=== PATIENT | male | born 1955 | race African-American/Black ===

== ENCOUNTER 2022-09-07 21:34 | Inpatient (IN) | payer OTHER ==
[~2022-09-07] VITALS: Ht 182.9 cm; Wt 106.2 kg
[2022-09-07 21:40] VITALS: BP 74/49
[2022-09-07] MEDS ORDERED: AMIODARONE 450mg/250ml AE 250 ML IV ONE (21:53)
[2022-09-07] MEDS ORDERED: CALCIUM CHLOR(10%) 100MG/ML 10ML SYRINGE IV ONE (21:56)
[2022-09-07] MEDS ORDERED: EPINEPHrine HCL 250 ML IV SCH (22:00)
[2022-09-07] MEDS ORDERED: AMIODARONE HCL 150 MG in D5W 5% 100 ML IV ONE (22:00)
[2022-09-07 22:04] LABS: Hemoglobin 15.4 g/dL (13.5-17.5); Mean Corpuscular Hemoglobin 32.1 pg (28.0-32.0); Mean Corpuscular Hgb Conc. 30.9 g/dL (32.0-36.0); Mean Corpuscular Volume 104.2 fL (80.0-100.0); Red Cell Distribution Width 15.5 % (11.8-14.3); White Blood Cell 7.5 10^3/uL (4.4-10.8)
[2022-09-07] MEDS ORDERED: AMIODARONE 450mg/250ml AE 250 ML IV SCH (22:15)
[2022-09-07 22:16] LABS: INR 1.16 (0.9-1.15); Partial Thromboplastin Time 36.9 sec (24.6-33.4)
[2022-09-07] MEDS ORDERED: NOREPINEPHRINE 8 MG/250ML KIT 250 ML IV ONE (22:19)
[2022-09-07 22:23] LABS: Albumin 3.8 g/dL (3.4-5.0); BUN/Creatinine Ratio 8.9 (10.0-20.0); Calcium 9.5 mg/dL (8.5-10.1); Magnesium 2.5 mg/dL (1.6-2.6); Potassium 3.9 mmol/L (3.5-5.1)
[2022-09-07] MEDS: NOREPINEPHRINE 8 MG/250ML KIT 250 ML IV SCH (22:26)
[2022-09-07 22:28] LABS: Bilirubin, Total 1.3 mg/dL (0.2-1.0); Total Protein 7.8 g/dL (6.4-8.2)
[2022-09-07] MEDS ORDERED: MIDAZOLAM DRIP 50 mg/50mL 50 ML IV ONE (22:28)
[2022-09-07] MEDS: MIDAZOLAM DRIP 50 mg/50mL 50 ML IV SCH (22:30)
[2022-09-07 22:56] LABS: Lactic Acid w/Reflex 8.4 mmol/L (0.4-2.0)
[2022-09-07 23:09] LABS: Urine Bacteria NONE SEEN /hpf (None Seen); Urine Blood 1+ /uL (Negative); Urine Mucus FEW (None Seen); Urine Specific Gravity 1.024 (1.001-1.035); Urine Sperm PRESENT /hpf (None Seen); Urine WBC 3 /hpf (0 - 3)
[2022-09-07 23:20] LABS: Band Neutrophils % (manual) 3; Basophils % (manual) 0 (0.0-2.0); Blast Cells 0; Eosinophils % (manual) 0 (0-7); Lymphocytes % (manual) 56 (10.0-50.0); Metamyelocytes % 2; Monocytes % (manual) 6 (0-12); Myelocytes % 0; Promyelocytes % 0; Reactive Lymphocytes 0
[2022-09-07 23:43] LABS: Amphetamine Screen, Urine NEGATIVE (NEGATIVE); Barbiturate Scree,Urine NEGATIVE (NEGATIVE); Benzodiazephine Screen, Urine NEGATIVE (NEGATIVE); Cannabinoid Screen, Urine POSITIVE (NEGATIVE); Cocaine Screen, Urine NEGATIVE (NEGATIVE); Opiate Scree,Urine NEGATIVE (NEGATIVE); Phencyclidine Screen, Urine NEGATIVE (NEGATIVE)
[2022-09-07 23:45] VITALS: BP 115/74
[2022-09-07 23:55] VITALS: BP 99/70
[2022-09-08] VITALS (62 sets, daily range): BP systolic 78–129; BP diastolic 38–76
[2022-09-08] MEDS ORDERED: HEPARIN SODIUM (PORCINE) 5000 UNITS/ML 1ML VIAL IV ONE (02:00)
[2022-09-08 02:59] LABS: Basophils # (auto) 0 10 ^3/uL (0-0.2); Hemoglobin 15.5 g/dL (13.5-17.5); Lymphocytes # (auto) 2.1 10 ^3/uL (0.4-5.4); Monocytes # (auto) 0.6 10 ^3/uL (0-1.3); Nucleated Red Blood Cells % 0.2 %; White Blood Cell 12.7 10^3/uL (4.4-10.8)
[2022-09-08 03:01] LABS: Basophils % (auto) 0.4 % (0.0-2.0); Eosinophils # (auto) 0 10 ^3/uL (0-0.8); Eosinophils % (auto) 0.3 % (0.0-7.0); Hematocrit 49.6 % (41.0-53.0); Lymphocytes % (auto) 16.3 % (10.0-50.0); Mean Corpuscular Hgb Conc. 31.3 g/dL (32.0-36.0); Mean Corpuscular Volume 102.3 fL (80.0-100.0); Monocytes % (auto) 4.6 % (0.0-12.0); Neutrophils % (auto) 78.4 % (37.0-80.0); Red Blood Cells 4.85 10^6/uL (4.5-5.90); Red Cell Distribution Width 15.4 % (11.8-14.3)
[2022-09-08 03:15] LABS: INR 1.26 (0.9-1.15); Partial Thromboplastin Time 30.7 sec (24.6-33.4)
[2022-09-08 03:49] LABS: Salicylate < 1.7 mg/dL (2.8-20.0)
[2022-09-08 04:04] LABS: Digoxin (Lanoxin) 0.1 ng/mL (0.8-2)
[2022-09-08] MEDS: AMIODARONE 450mg/250ml AE 250 ML IV SCH ×2 (04:15→19:23)
[2022-09-08 04:18] LABS: Acetaminophen < 2.0 ug/mL (10-30)
[2022-09-08] MEDS: HEPARIN DRIP/D5W 100UNITS/ML 250 ML IV SCH (04:46)
[2022-09-08 06:51] LABS: INR 1.34 (0.9-1.15)
[2022-09-08 07:00] LABS: Partial Thromboplastin Time 117.2 sec (24.6-33.4)
[2022-09-08] MEDS ORDERED: MORPHINE SULFATE INJ 2 MG/ml SYRG IV PRN (07:15)
[2022-09-08] MEDS ORDERED: ONDANSETRON HCL 4 MG/2 ML VIAL IV PRN (07:15)
[2022-09-08] MEDS ORDERED: NITROGLYCERIN 0.4 MG SL TAB SL PRN (07:15)
[2022-09-08] MEDS ORDERED: ACETAMINOPHEN 325 MG TAB PO PRN (07:15)
[2022-09-08] MEDS ORDERED: EPINEPHrine HCL 1 MG/10 ML SYRG ONE (08:10)
[2022-09-08] MEDS ORDERED: SODIUM BICARBONATE 8.4% INJ 50ML SYRINGE ONE (08:11)
[2022-09-08] MEDS ORDERED: fentaNYL Drip 2500mCg/250mlNS 250 ML IV ONE (08:25)
[2022-09-08] MEDS ORDERED: PHENYLEPHRINE IV 250 ML IV SCH (08:30)
[2022-09-08] MEDS: NOREPINEPHRINE 8 MG/250ML KIT 250 ML IV SCH ×2 (08:37→13:13)
[2022-09-08] MEDS: fentaNYL Drip 2500mCg/250mlNS 250 ML IV SCH (08:40)
[2022-09-08] MEDS ORDERED: VANCOMYCIN PER PHARMACY 0 MG IV SCH (08:45)
[2022-09-08] MEDS: MIDAZOLAM DRIP 50 mg/50mL 50 ML IV SCH ×5 (08:46→23:55)
[2022-09-08] MEDS ORDERED: ACETAMINOPHEN 650 MG RECT SUPP PR ONE (09:00)
[2022-09-08] MEDS ORDERED: VANCOMYCIN 1GM/250ML 250 ML IV ONE (09:00)
[2022-09-08] MEDS: VASOPRESSIN 20 UNITS in SODIUM CHL 0.9% 99 ML IV SCH ×2 (09:36→17:48)
[2022-09-08] MEDS ORDERED: BUMETANIDE 2.5mg/10ml (0.25 mg/ml) INJ IV ONE (10:00)
[2022-09-08] MEDS: SODIUM CHLORIDE 0.9% 1,000 ML IV SCH (10:17)
[2022-09-08] MEDS ORDERED: PHENYLEPHRINE IV 250 ML IV ONE (10:40)
[2022-09-08] MEDS: PHENYLEPHRINE IV 250 ML IV SCH ×2 (10:53→12:57)
[2022-09-08] MEDS ORDERED: PROPOFOL 100 ML IV SCH (11:45)
[2022-09-08] MEDS: HYDROCORTISONE SOD SUCC 100 MG/2ML INJ VIAL IV SCH ×2 (12:00→18:00)
[2022-09-08] MEDS: PROPOFOL 100 ML IV SCH ×2 (12:36→23:04)
[2022-09-08] MEDS: levoFLOXacin 500MG 100 ML IV SCH (12:37)
[2022-09-08] MEDS: DOPamine 1600MCG/ML D5W 250 ML IV SCH ×2 (12:37→21:31)
[2022-09-08] MEDS ORDERED: POTASSIUM CHL 20MEQ/100ML 100 ML IV ONE (13:00)
[2022-09-08] MEDS: PHENYLEPHRINE INJ 80 MG in SODIUM CHL 0.9% 242 ML IV SCH ×2 (15:20→22:56)
[2022-09-08 15:50] LABS: BUN/Creatinine Ratio 10.6 (10.0-20.0); Calcium 9.6 mg/dL (8.5-10.1)
[2022-09-08] MEDS: NOREPINEPHRINE BITARTRATE 32 MG in SODIUM CHL 0.9% 218 ML IV SCH (17:40)
[2022-09-08] MEDS: EPINEPHrine HCL INJECTION 16 MG in D5W 5% 234 ML IV SCH (18:06)
[2022-09-08] MEDS: CEFEPIME 2 GM in SODIUM CHL 0.9% 50 ML IV SCH (18:07)
[2022-09-08] MEDS ORDERED: EPINEPHrine HCL 1 MG/10 ML SYRG IV ONE (20:57)
[2022-09-08] MEDS ORDERED: SODIUM BICARBONATE 8.4% INJ 50ML SYRINGE IV ONE (20:57)
[2022-09-08] MEDS ORDERED: AMIODARONE HCL (50 MG/ ML) 3 ML VIAL IV ONE (20:57)
[2022-09-08] MEDS ORDERED: CALCIUM CHLOR(10%) 100MG/ML 10ML SYRINGE IV ONE (20:57)
[2022-09-08] MEDS ORDERED: MAGNESIUM SULF 50% 40 MEQ/10 ML VL IV ONE (20:58)
[2022-09-09] VITALS (102 sets, daily range): BP systolic 105–136; BP diastolic 10–69
[2022-09-09] MEDS: CEFEPIME 2 GM in SODIUM CHL 0.9% 50 ML IV SCH ×4 (00:06→22:14)
[2022-09-09] MEDS: SODIUM CHLORIDE 0.9% 1,000 ML IV SCH ×2 (00:15→09:55)
[2022-09-09] MEDS ORDERED: BUM1T PO (01:51)
[2022-09-09] MEDS: HEPARIN DRIP/D5W 100UNITS/ML 250 ML IV SCH (02:00)
[2022-09-09] MEDS ORDERED: SACU1TAB7 PO (02:15)
[2022-09-09] MEDS ORDERED: THIA100T10 PO (02:15)
[2022-09-09] MEDS ORDERED: SPIR25TA8 PO (02:15)
[2022-09-09] MEDS ORDERED: ACYC-161 PO (02:15)
[2022-09-09] MEDS ORDERED: METO-289 PO (02:15)
[2022-09-09] MEDS ORDERED: EMPA1TAB PO (02:15)
[2022-09-09] MEDS ORDERED: ATOR40TA52 PO (02:15)
[2022-09-09] MEDS: fentaNYL Drip 2500mCg/250mlNS 250 ML IV SCH (02:47)
[2022-09-09] MEDS ORDERED: VANCOMYCIN 1GM/250ML 250 ML IV SCH (04:00)
[2022-09-09] MEDS: MIDAZOLAM DRIP 50 mg/50mL 50 ML IV SCH ×4 (04:08→17:39)
[2022-09-09 04:47] LABS: Basophils # (auto) 0 10 ^3/uL (0-0.2); Basophils % (auto) 0.3 % (0.0-2.0); Eosinophils # (auto) 0 10 ^3/uL (0-0.8); Eosinophils % (auto) 0.1 % (0.0-7.0); Hemoglobin 13.7 g/dL (13.5-17.5); Lymphocytes % (auto) 6.2 % (10.0-50.0); Mean Corpuscular Hemoglobin 31.9 pg (28.0-32.0); Mean Corpuscular Hgb Conc. 31.8 g/dL (32.0-36.0); Mean Corpuscular Volume 100.4 fL (80.0-100.0); Monocytes # (auto) 0.4 10 ^3/uL (0-1.3); Monocytes % (auto) 2.6 % (0.0-12.0); Neutrophils # (auto) 14.7 10 ^3/uL (1.6-8.6); Neutrophils % (auto) 90.8 % (37.0-80.0); Nucleated Red Blood Cells % 0.3 %; Red Blood Cells 4.28 10^6/uL (4.5-5.90); Red Cell Distribution Width 15.1 % (11.8-14.3); White Blood Cell 16.2 10^3/uL (4.4-10.8)
[2022-09-09 05:11] LABS: Albumin 2.8 g/dL (3.4-5.0); Calcium 7.9 mg/dL (8.5-10.1); Magnesium 2.7 mg/dL (1.6-2.6); Potassium 4.7 mmol/L (3.5-5.1)
[2022-09-09 05:14] LABS: BUN/Creatinine Ratio 11.4 (10.0-20.0)
[2022-09-09 05:17] LABS: Bilirubin, Total 4.6 mg/dL (0.2-1.0); Total Protein 6.1 g/dL (6.4-8.2)
[2022-09-09] MEDS: DOPamine 1600MCG/ML D5W 250 ML IV SCH ×3 (05:25→22:02)
[2022-09-09] MEDS: HYDROCORTISONE SOD SUCC 100 MG/2ML INJ VIAL IV SCH ×4 (06:00→17:43)
[2022-09-09] MEDS: VASOPRESSIN 20 UNITS in SODIUM CHL 0.9% 99 ML IV SCH ×2 (06:42→17:36)
[2022-09-09] MEDS: PHENYLEPHRINE INJ 80 MG in SODIUM CHL 0.9% 242 ML IV SCH ×3 (06:44→22:53)
[2022-09-09] MEDS: AMIODARONE 450mg/250ml AE 250 ML IV SCH (10:31)
[2022-09-09] MEDS: levoFLOXacin 500MG 100 ML IV SCH (10:34)
[2022-09-09] MEDS: PROPOFOL 100 ML IV SCH (12:33)
[2022-09-09] MEDS: NOREPINEPHRINE BITARTRATE 32 MG in SODIUM CHL 0.9% 218 ML IV SCH (13:00)
[2022-09-09] MEDS: EPINEPHrine HCL INJECTION 16 MG in D5W 5% 234 ML IV SCH ×2 (15:00→17:42)
[2022-09-09] MEDS: SODIUM BICARBONATE 50ML VIAL 150 ML in D5W 5% 1,000 ML IV SCH (16:11)
[2022-09-09] MEDS: SILVER SULFADIAZINE 1 % TOPICAL CREAM 50GM TOP SCH (16:24)
[2022-09-09] MEDS: PANTOPRAZOLE 40 MG/10 ML VIAL INJ IV SCH (22:14)
[2022-09-10] VITALS (103 sets, daily range): BP systolic 105–179; BP diastolic 15–118
[2022-09-10] MEDS: AMIODARONE 450mg/250ml AE 250 ML IV SCH ×2 (00:51→16:20)
[2022-09-10] MEDS: SODIUM BICARBONATE 50ML VIAL 150 ML in D5W 5% 1,000 ML IV SCH ×3 (03:32→23:31)
[2022-09-10] MEDS: MIDAZOLAM DRIP 50 mg/50mL 50 ML IV SCH ×3 (03:44→22:29)
[2022-09-10] MEDS: fentaNYL Drip 2500mCg/250mlNS 250 ML IV SCH (03:45)
[2022-09-10] MEDS: NOREPINEPHRINE BITARTRATE 32 MG in SODIUM CHL 0.9% 218 ML IV SCH (03:48)
[2022-09-10 04:48] LABS: Basophils # (auto) 0.2 10 ^3/uL (0-0.2); Basophils % (auto) 0.8 % (0.0-2.0); Eosinophils # (auto) 0 10 ^3/uL (0-0.8); Hematocrit 40.7 % (41.0-53.0); Lymphocytes # (auto) 0.5 10 ^3/uL (0.4-5.4); Lymphocytes % (auto) 2.6 % (10.0-50.0); Mean Corpuscular Hemoglobin 31.4 pg (28.0-32.0); Mean Corpuscular Volume 98.1 fL (80.0-100.0); Monocytes # (auto) 0.8 10 ^3/uL (0-1.3); Monocytes % (auto) 3.9 % (0.0-12.0); Neutrophils # (auto) 18.5 10 ^3/uL (1.6-8.6); Neutrophils % (auto) 92.7 % (37.0-80.0); Red Blood Cells 4.15 10^6/uL (4.5-5.90); Red Cell Distribution Width 14.7 % (11.8-14.3); White Blood Cell 19.9 10^3/uL (4.4-10.8)
[2022-09-10 05:09] LABS: INR 1.77 (0.9-1.15); Partial Thromboplastin Time 37.3 sec (24.6-33.4)
[2022-09-10] MEDS: VASOPRESSIN 20 UNITS in SODIUM CHL 0.9% 99 ML IV SCH ×2 (05:25→16:46)
[2022-09-10] MEDS: DOPamine 1600MCG/ML D5W 250 ML IV SCH ×2 (05:27→16:19)
[2022-09-10] MEDS: PHENYLEPHRINE INJ 80 MG in SODIUM CHL 0.9% 242 ML IV SCH (05:27)
[2022-09-10] MEDS: CEFEPIME 2 GM in SODIUM CHL 0.9% 50 ML IV SCH ×3 (05:31→21:38)
[2022-09-10] MEDS: HYDROCORTISONE SOD SUCC 100 MG/2ML INJ VIAL IV SCH ×4 (06:00→18:00)
[2022-09-10] MEDS: levoFLOXacin 500MG 100 ML IV SCH (10:06)
[2022-09-10] MEDS: PANTOPRAZOLE 40 MG/10 ML VIAL INJ IV SCH ×2 (10:06→21:38)
[2022-09-10] MEDS: SILVER SULFADIAZINE 1 % TOPICAL CREAM 50GM TOP SCH (10:06)
[2022-09-10] MEDS ORDERED: TPN PER PHARMACY 0 ML IV SCH (15:45)
[2022-09-10 19:50] LABS: Albumin 2.4 g/dL (3.4-5.0); Calcium 7.5 mg/dL (8.5-10.1); Potassium 5.4 mmol/L (3.5-5.1)
[2022-09-10 20:07] LABS: BUN/Creatinine Ratio 12.6 (10.0-20.0); Bilirubin, Total 7.9 mg/dL (0.2-1.0); Total Protein 5.6 g/dL (6.4-8.2)
[2022-09-10] MEDS: AMINO ACID INFUSION IN D10W 1,000 ML IV NR (20:23)
[2022-09-10] MEDS ORDERED: InsuLIN REG 1unit/0.01ml Soln (100units/ml) IV ONE (22:30)
[2022-09-10] MEDS ORDERED: ALBUTEROL SULF 2.5 MG/0.5ML(0.5%) NEB SOLN NEB ONE (22:30)
[2022-09-10] MEDS ORDERED: DEXTROSE (50%) 50ML SYRG IV ONE (22:30)
[2022-09-10] MEDS ORDERED: CALCIUM GLUC 1,000mg/50ml-NS 50 ML IV ONE (22:30)
[2022-09-10] MEDS ORDERED: DEXTROSE 10% 250 ML IV ONE (23:05)
[2022-09-11] VITALS (105 sets, daily range): BP systolic 86–148; BP diastolic 27–71
[2022-09-11] MEDS ORDERED: DEXTROSE (50%) 50ML SYRG IV SCH
[2022-09-11] MEDS: MIDAZOLAM DRIP 50 mg/50mL 50 ML IV SCH ×6 (02:40→22:10)
[2022-09-11] MEDS: VASOPRESSIN 20 UNITS in SODIUM CHL 0.9% 99 ML IV SCH ×2 (03:27→14:44)
[2022-09-11 04:37] LABS: Basophils # (auto) 0.1 10 ^3/uL (0-0.2); Basophils % (auto) 0.4 % (0.0-2.0); Eosinophils # (auto) 0.2 10 ^3/uL (0-0.8); Eosinophils % (auto) 1.3 % (0.0-7.0); Hematocrit 33.9 % (41.0-53.0); Hemoglobin 11.2 g/dL (13.5-17.5); Lymphocytes # (auto) 0.6 10 ^3/uL (0.4-5.4); Lymphocytes % (auto) 4.7 % (10.0-50.0); Mean Corpuscular Hemoglobin 31.6 pg (28.0-32.0); Mean Corpuscular Hgb Conc. 32.9 g/dL (32.0-36.0); Mean Corpuscular Volume 95.9 fL (80.0-100.0); Monocytes # (auto) 0.3 10 ^3/uL (0-1.3); Monocytes % (auto) 2.4 % (0.0-12.0); Neutrophils # (auto) 12.4 10 ^3/uL (1.6-8.6); Neutrophils % (auto) 91.2 % (37.0-80.0); Nucleated Red Blood Cells % 2.2 %; Red Blood Cells 3.54 10^6/uL (4.5-5.90); Red Cell Distribution Width 14.6 % (11.8-14.3); White Blood Cell 13.6 10^3/uL (4.4-10.8)
[2022-09-11 04:48] LABS: Albumin 2.3 g/dL (3.4-5.0); Calcium 7.3 mg/dL (8.5-10.1); Magnesium 2.1 mg/dL (1.6-2.6); Potassium 4.5 mmol/L (3.5-5.1)
[2022-09-11] MEDS: fentaNYL Drip 2500mCg/250mlNS 250 ML IV SCH (04:50)
[2022-09-11 04:57] LABS: BUN/Creatinine Ratio 12.4 (10.0-20.0); Bilirubin, Total 10.9 mg/dL (0.2-1.0); Phosphorus 4.5 mg/dL (2.5-4.90); Total Protein 5.2 g/dL (6.4-8.2)
[2022-09-11] MEDS: HYDROCORTISONE SOD SUCC 100 MG/2ML INJ VIAL IV SCH ×4 (05:32→17:49)
[2022-09-11] MEDS: CEFEPIME 2 GM in SODIUM CHL 0.9% 50 ML IV SCH ×3 (05:32→21:40)
[2022-09-11] MEDS: InsuLIN REG 1unit/0.01ml Soln (100units/ml) SC SCH ×4 (05:35→17:49)
[2022-09-11] MEDS: ACCU-CHEK COMFORT CURVE STRIP VI SCH ×4 (05:35→17:49)
[2022-09-11] MEDS: AMIODARONE 450mg/250ml AE 250 ML IV SCH ×2 (06:47→20:44)
[2022-09-11] MEDS: SODIUM BICARBONATE 50ML VIAL 150 ML in D5W 5% 1,000 ML IV SCH ×2 (08:49→20:08)
[2022-09-11] MEDS: PANTOPRAZOLE 40 MG/10 ML VIAL INJ IV SCH ×2 (09:55→21:40)
[2022-09-11] MEDS: PROPOFOL 100 ML IV SCH (09:57)
[2022-09-11] MEDS: SILVER SULFADIAZINE 1 % TOPICAL CREAM 50GM TOP SCH (09:57)
[2022-09-11] MEDS ORDERED: VANCOMYCIN 500 MG in D5W 5% 100 ML IV ONE (10:00)
[2022-09-11] MEDS: EPINEPHrine HCL INJECTION 16 MG in D5W 5% 234 ML IV SCH (11:13)
[2022-09-11] MEDS: levoFLOXacin 500MG 100 ML IV SCH (11:13)
[2022-09-11] MEDS: NOREPINEPHRINE BITARTRATE 32 MG in SODIUM CHL 0.9% 218 ML IV SCH (11:14)
[2022-09-11] MEDS: PHENYLEPHRINE INJ 80 MG in SODIUM CHL 0.9% 242 ML IV SCH (13:00)
[2022-09-11] MEDS: DOPamine 1600MCG/ML D5W 250 ML IV SCH (17:02)
[2022-09-11] MEDS ORDERED: SODIUM BICARBONATE 8.4 % INJ 50ML VIAL IV ONE (19:36)
[2022-09-11] MEDS ORDERED: TPN PER PHARMACY IV NR ×6 (20:00)
[2022-09-11] MEDS: AMINO ACID INFUSION IN D10W 1,000 ML IV NR (20:08)
[2022-09-12] VITALS (103 sets, daily range): BP systolic 89–142; BP diastolic 31–72
[2022-09-12] MEDS: VASOPRESSIN 20 UNITS in SODIUM CHL 0.9% 99 ML IV SCH ×3 (01:41→23:55)
[2022-09-12] MEDS: MIDAZOLAM DRIP 50 mg/50mL 50 ML IV SCH ×8 (02:26→23:50)
[2022-09-12] MEDS: NOREPINEPHRINE BITARTRATE 32 MG in SODIUM CHL 0.9% 218 ML IV SCH ×2 (04:10→19:15)
[2022-09-12 04:44] LABS: Hematocrit 29.9 % (41.0-53.0); Hemoglobin 10.2 g/dL (13.5-17.5); Mean Corpuscular Hemoglobin 32.9 pg (28.0-32.0); Mean Corpuscular Hgb Conc. 34.2 g/dL (32.0-36.0); Mean Corpuscular Volume 96.1 fL (80.0-100.0); Red Blood Cells 3.11 10^6/uL (4.5-5.90); Red Cell Distribution Width 14.2 % (11.8-14.3); White Blood Cell 18.7 10^3/uL (4.4-10.8)
[2022-09-12 05:13] LABS: Basophils % (manual) 0 (0.0-2.0); Blast Cells 0; Eosinophils % (manual) 0 (0-7); Metamyelocytes % 0; Promyelocytes % 0; Reactive Lymphocytes 0
[2022-09-12 05:25] LABS: Potassium 4.6 mmol/L (3.5-5.1)
[2022-09-12 05:31] LABS: Albumin 2.1 g/dL (3.4-5.0); BUN/Creatinine Ratio 12.7 (10.0-20.0); Bilirubin, Total 24.2 mg/dL (0.2-1.0); Calcium 7.1 mg/dL (8.5-10.1)
[2022-09-12 05:39] LABS: Phosphorus 3.8 mg/dL (2.5-4.90)
[2022-09-12] MEDS: HYDROCORTISONE SOD SUCC 100 MG/2ML INJ VIAL IV SCH ×3 (06:00→12:00)
[2022-09-12] MEDS: ACCU-CHEK COMFORT CURVE STRIP VI SCH ×4 (06:12→18:05)
[2022-09-12] MEDS: InsuLIN REG 1unit/0.01ml Soln (100units/ml) SC SCH ×4 (06:13→18:00)
[2022-09-12] MEDS: CEFEPIME 2 GM in SODIUM CHL 0.9% 50 ML IV SCH (06:13)
[2022-09-12] MEDS: DOPamine 1600MCG/ML D5W 250 ML IV SCH ×2 (08:18→18:51)
[2022-09-12] MEDS: fentaNYL Drip 2500mCg/250mlNS 250 ML IV SCH ×2 (08:30→20:15)
[2022-09-12 08:48] LABS: Band Neutrophils % (manual) 25; Lymphocytes % (manual) 2 (10.0-50.0); Monocytes % (manual) 2 (0-12); Myelocytes % 3
[2022-09-12] MEDS ORDERED: VANCOMYCIN 500 MG in D5W 5% 100 ML IV ONE (09:00)
[2022-09-12] MEDS: SODIUM BICARBONATE 50ML VIAL 150 ML in D5W 5% 1,000 ML IV SCH ×2 (09:45→16:59)
[2022-09-12] MEDS: PANTOPRAZOLE 40 MG/10 ML VIAL INJ IV SCH ×2 (10:16→21:45)
[2022-09-12] MEDS: SILVER SULFADIAZINE 1 % TOPICAL CREAM 50GM TOP SCH (10:17)
[2022-09-12] MEDS: PROPOFOL 100 ML IV SCH ×2 (11:59→23:55)
[2022-09-12] MEDS ORDERED: QUEtiapine FUMARATE 25 MG TAB NG ONE (12:45)
[2022-09-12] MEDS: AMIODARONE 450mg/250ml AE 250 ML IV SCH (13:00)
[2022-09-12] MEDS: EPINEPHrine HCL INJECTION 16 MG in D5W 5% 234 ML IV SCH (13:00)
[2022-09-12] MEDS: PHENYLEPHRINE INJ 80 MG in SODIUM CHL 0.9% 242 ML IV SCH (13:00)
[2022-09-12] MEDS ORDERED: BUMETANIDE 2.5mg/10ml (0.25 mg/ml) INJ IV ONE (15:45)
[2022-09-12] MEDS: ALBUMIN 25% 50 ML IV SCH ×2 (16:52→23:25)
[2022-09-12] MEDS: FUROSEMIDE INJECTION 100 MG in SODIUM CHL 0.9% 100 ML IV SCH ×2 (17:34→23:24)
[2022-09-12] MEDS: MIDODRINE HCL 10 MG TAB PO SCH (18:05)
[2022-09-12] MEDS ORDERED: TPN PER PHARMACY IV NR ×8 (20:00)
[2022-09-13] VITALS (96 sets, daily range): BP systolic 85–152; BP diastolic 23–86
[2022-09-13] MEDS: MIDAZOLAM DRIP 50 mg/50mL 50 ML IV SCH ×6 (02:35→23:02)
[2022-09-13] MEDS: SODIUM BICARBONATE 50ML VIAL 150 ML in D5W 5% 1,000 ML IV SCH (02:50)
[2022-09-13 04:09] LABS: Hemoglobin 9.5 g/dL (13.5-17.5)
[2022-09-13 04:12] LABS: Mean Corpuscular Hemoglobin 33.8 pg (28.0-32.0); Mean Corpuscular Hgb Conc. 35.1 g/dL (32.0-36.0); Mean Corpuscular Volume 96.5 fL (80.0-100.0); Red Cell Distribution Width 14.1 % (11.8-14.3); White Blood Cell 22.8 10^3/uL (4.4-10.8)
[2022-09-13] MEDS: AMIODARONE 450mg/250ml AE 250 ML IV SCH ×2 (04:14→17:31)
[2022-09-13 04:17] LABS: Potassium 4.8 mmol/L (3.5-5.1)
[2022-09-13 04:32] LABS: Albumin 2.2 g/dL (3.4-5.0); BUN/Creatinine Ratio 13.4 (10.0-20.0); Bilirubin, Total 37.4 mg/dL (0.2-1.0); Magnesium 1.9 mg/dL (1.6-2.6); Phosphorus 2.8 mg/dL (2.5-4.90); Total Protein 4.2 g/dL (6.4-8.2)
[2022-09-13 04:58] LABS: Basophils % (manual) 0 (0.0-2.0); Blast Cells 0; Eosinophils % (manual) 0 (0-7); Metamyelocytes % 0; Promyelocytes % 0; Reactive Lymphocytes 0
[2022-09-13] MEDS: ACCU-CHEK COMFORT CURVE STRIP VI SCH ×5 (05:44→23:54)
[2022-09-13] MEDS: InsuLIN REG 1unit/0.01ml Soln (100units/ml) SC SCH ×5 (05:45→23:54)
[2022-09-13] MEDS: CEFEPIME 2 GM in SODIUM CHL 0.9% 50 ML IV SCH (05:47)
[2022-09-13] MEDS: MIDODRINE HCL 10 MG TAB PO SCH ×3 (05:47→18:50)
[2022-09-13] MEDS: FUROSEMIDE INJECTION 100 MG in SODIUM CHL 0.9% 100 ML IV SCH ×6 (06:42→21:56)
[2022-09-13] MEDS: ALBUMIN 25% 50 ML IV SCH (07:45)
[2022-09-13 08:12] LABS: Band Neutrophils % (manual) 10; Lymphocytes % (manual) 1 (10.0-50.0); Monocytes % (manual) 7 (0-12); Myelocytes % 7
[2022-09-13] MEDS: SILVER SULFADIAZINE 1 % TOPICAL CREAM 50GM TOP SCH (09:45)
[2022-09-13] MEDS: PANTOPRAZOLE 40 MG/10 ML VIAL INJ IV SCH ×2 (09:45→21:50)
[2022-09-13] MEDS ORDERED: levoFLOXacin 500MG 100 ML IV SCH (10:00)
[2022-09-13] MEDS ORDERED: QUEtiapine FUMARATE 25 MG TAB NG SCH (10:00)
[2022-09-13] MEDS: fentaNYL Drip 2500mCg/250mlNS 250 ML IV SCH (11:00)
[2022-09-13] MEDS: VASOPRESSIN 20 UNITS in SODIUM CHL 0.9% 99 ML IV SCH ×2 (11:02→17:31)
[2022-09-13] MEDS: EPINEPHrine HCL INJECTION 16 MG in D5W 5% 234 ML IV SCH (13:00)
[2022-09-13] MEDS: PHENYLEPHRINE INJ 80 MG in SODIUM CHL 0.9% 242 ML IV SCH (13:00)
[2022-09-13] MEDS ORDERED: ALBUMIN 25% 100 ML IV PRN (13:30)
[2022-09-13] MEDS ORDERED: SODIUM CHL 0.9% 1000 ML BAG XX ONE (13:30)
[2022-09-13] MEDS: DOPamine 1600MCG/ML D5W 250 ML IV SCH ×2 (15:14→19:24)
[2022-09-13] MEDS ORDERED: AMIODARONE HCL 150 MG in D5W 5% 100 ML IV ONE (16:15)
[2022-09-13 16:34] LABS: % Iron Saturation 112.6 % (20-55)
[2022-09-13] MEDS ORDERED: D5W 5% 100 ML MINI BAG IV ONE (20:11)
[2022-09-13] MEDS: TPN PER PHARMACY IV NR ×8 (20:20)
[2022-09-13] MEDS ORDERED: SODIUM ZIRCONIUM CYCL 10 GM PAK PO ONE (23:45)
[2022-09-13] MEDS ORDERED: DEXTROSE 10% 250 ML IV ONE (23:48)
[2022-09-14] VITALS (105 sets, daily range): BP systolic 42–167; BP diastolic 12–101
[2022-09-14] MEDS: FUROSEMIDE INJECTION 100 MG in SODIUM CHL 0.9% 100 ML IV SCH ×10 (00:08→23:30)
[2022-09-14] MEDS: fentaNYL Drip 2500mCg/250mlNS 250 ML IV SCH ×2 (00:48→13:11)
[2022-09-14] MEDS: MIDAZOLAM DRIP 50 mg/50mL 50 ML IV SCH ×5 (02:47→20:18)
[2022-09-14 04:10] LABS: Hemoglobin 8.2 g/dL (13.5-17.5)
[2022-09-14 04:13] LABS: Hematocrit 23.9 % (41.0-53.0); Mean Corpuscular Hgb Conc. 34.3 g/dL (32.0-36.0); Mean Corpuscular Volume 99.1 fL (80.0-100.0); Red Blood Cells 2.41 10^6/uL (4.5-5.90); Red Cell Distribution Width 14.7 % (11.8-14.3); White Blood Cell 26.9 10^3/uL (4.4-10.8)
[2022-09-14 04:19] LABS: Basophils % (manual) 0 (0.0-2.0); Blast Cells 0; Eosinophils % (manual) 0 (0-7); Promyelocytes % 0; Reactive Lymphocytes 0
[2022-09-14 04:33] LABS: Potassium 5.3 mmol/L (3.5-5.1)
[2022-09-14 04:48] LABS: Albumin 2.3 g/dL (3.4-5.0); Bilirubin, Total 41.3 mg/dL (0.2-1.0); Calcium 7.3 mg/dL (8.5-10.1); Phosphorus 4.2 mg/dL (2.5-4.90)
[2022-09-14] MEDS: VASOPRESSIN 20 UNITS in SODIUM CHL 0.9% 99 ML IV SCH ×2 (04:50→17:56)
[2022-09-14 04:59] LABS: Band Neutrophils % (manual) 12; Lymphocytes % (manual) 19 (10.0-50.0); Metamyelocytes % 4; Monocytes % (manual) 3 (0-12); Myelocytes % 8
[2022-09-14 05:18] LABS: Total Protein 4.3 g/dL (6.4-8.2)
[2022-09-14] MEDS: CEFEPIME 2 GM in SODIUM CHL 0.9% 50 ML IV SCH (05:55)
[2022-09-14] MEDS: ACCU-CHEK COMFORT CURVE STRIP VI SCH ×3 (05:55→18:00)
[2022-09-14] MEDS: MIDODRINE HCL 10 MG TAB PO SCH ×3 (05:55→18:40)
[2022-09-14] MEDS: InsuLIN REG 1unit/0.01ml Soln (100units/ml) SC SCH ×3 (06:24→18:00)
[2022-09-14] MEDS ORDERED: SODIUM CHL 0.9% 1000 ML BAG XX ONE (07:00)
[2022-09-14] MEDS: AMIODARONE 450mg/250ml AE 250 ML IV SCH (07:30)
[2022-09-14] MEDS: PROPOFOL 100 ML IV SCH (07:47)
[2022-09-14] MEDS: NOREPINEPHRINE BITARTRATE 32 MG in SODIUM CHL 0.9% 218 ML IV SCH (08:24)
[2022-09-14] MEDS: SILVER SULFADIAZINE 1 % TOPICAL CREAM 50GM TOP SCH (10:00)
[2022-09-14] MEDS: DOPamine 1600MCG/ML D5W 250 ML IV SCH ×2 (10:29→23:15)
[2022-09-14] MEDS: PANTOPRAZOLE 40 MG/10 ML VIAL INJ IV SCH ×2 (12:30→21:12)
[2022-09-14] MEDS: EPINEPHrine HCL INJECTION 16 MG in D5W 5% 234 ML IV SCH ×2 (13:00→22:31)
[2022-09-14] MEDS: PHENYLEPHRINE INJ 80 MG in SODIUM CHL 0.9% 242 ML IV SCH ×2 (13:00→17:00)
[2022-09-14] MEDS ORDERED: VANCOMYCIN 500 MG in D5W 5% 100 ML IV ONE (16:00)
[2022-09-14] MEDS ORDERED: AMIODARONE HCL 150 MG in D5W 5% 100 ML IV ONE (16:25)
[2022-09-14] MEDS ORDERED: AMIODARONE HCL (50 MG/ ML) 3 ML VIAL IV ONE (16:27)
[2022-09-14 19:08] LABS: BUN/Creatinine Ratio 10.4 (10.0-20.0); Calcium 7.6 mg/dL (8.5-10.1)
[2022-09-14] MEDS ORDERED: TPN PER PHARMACY IV NR ×7 (20:00)
[2022-09-14] MEDS: TPN PER PHARMACY IV NR ×8 (20:20)
[2022-09-14] MEDS ORDERED: DOPamine 1600MCG/ML D5W 250 ML IV ONE (22:03)
[2022-09-14] MEDS ORDERED: EPINEPHrine HCL 250 ML IV ONE (22:12)
[2022-09-14] MEDS ORDERED: EPINEPHRINE HCL IV ONE (22:14)
[2022-09-15] VITALS (31 sets, daily range): BP systolic 48–124; BP diastolic 15–57
[2022-09-15] MEDS ORDERED: DEXTROSE 10% 250 ML IV ONE ×2 (00:14→00:53)
[2022-09-15] MEDS: ACCU-CHEK COMFORT CURVE STRIP VI SCH ×2 (00:22→05:44)
[2022-09-15] MEDS ORDERED: DEXTROSE 10% 1,000 ML IV SCH (01:00)
[2022-09-15] MEDS: AMIODARONE 450mg/250ml AE 250 ML IV SCH (01:22)
[2022-09-15] MEDS: FUROSEMIDE INJECTION 100 MG in SODIUM CHL 0.9% 100 ML IV SCH ×3 (02:00→07:00)
[2022-09-15] MEDS: DOPamine 1600MCG/ML D5W 250 ML IV SCH ×2 (02:07→05:46)
[2022-09-15 05:03] LABS: Albumin 2.2 g/dL (3.4-5.0); BUN/Creatinine Ratio 10.4 (10.0-20.0); Calcium 7.6 mg/dL (8.5-10.1); Magnesium 2.3 mg/dL (1.6-2.6)
[2022-09-15 05:20] LABS: Bilirubin, Total 38.6 mg/dL (0.2-1.0)
[2022-09-15 05:43] LABS: Total Protein 4.5 g/dL (6.4-8.2)
[2022-09-15] MEDS: InsuLIN REG 1unit/0.01ml Soln (100units/ml) SC SCH ×2 (05:44)
[2022-09-15] MEDS: CEFEPIME 2 GM in SODIUM CHL 0.9% 50 ML IV SCH (05:44)
[2022-09-15] MEDS: MIDODRINE HCL 10 MG TAB PO SCH (05:46)
[2022-09-15 09:41] LABS: Hepatitis B Surface Antibody Negative (Negative)
[2022-09-15 10:08] LABS: Hepatitis A Total Antibody Negative (Negative)
[2022-09-15 11:32] LABS: Hepatitis A Ab IgM Negative
[2022-09-15 11:35] LABS: Hepatitis B Core IgM Negative
[2022-09-15 11:36] LABS: Hepatitis C Antibody Negative (Negative)
== END 2022-09-15 15:02 | DRG 207 ==
LOC: EDBD 21:34 → ER 21:34 → TELE 09-08 07:07 → ICU WEST 09-08 11:01
PROVIDERS: ADMIT Nurse Practitioner; ATTEND Internal Medicine
PROC: 5A1955Z Respiratory Ventilation, Greater than 96 Consecutive Hours (ICD-10-PCS; principal; 2022-09-07)
PROC: 0BH17EZ Insertion of Endotracheal Airway into Trachea, Via Natural or Artificial Opening (ICD-10-PCS; 2022-09-07)
PROC: 06HM33Z Insertion of Infusion Device into Right Femoral Vein, Percutaneous Approach (ICD-10-PCS; 2022-09-07)
PROC: 5A12012 Performance of Cardiac Output, Single, Manual (ICD-10-PCS; 2022-09-07)
PROC: 5A1D70Z Performance of Urinary Filtration, Intermittent, Less than 6 Hours Per Day (ICD-10-PCS; 2022-09-13)
PROC: 05HM33Z Insertion of Infusion Device into Right Internal Jugular Vein, Percutaneous Approach (ICD-10-PCS; 2022-09-13)
PROC: B543ZZA Ultrasonography of Right Jugular Veins, Guidance (ICD-10-PCS; 2022-09-13)
PROC: 5A1D70Z Performance of Urinary Filtration, Intermittent, Less than 6 Hours Per Day (ICD-10-PCS; 2022-09-14)
PROC: 5A12012 Performance of Cardiac Output, Single, Manual (ICD-10-PCS; 2022-09-15)
DX: J96.00 Acute respiratory failure, unspecified whether with hypoxia or hypercapnia (principal); G93.41 Metabolic encephalopathy; I21.4 Non-ST elevation (NSTEMI) myocardial infarction; J69.0 Pneumonitis due to inhalation of food and vomit; K72.00 Acute and subacute hepatic failure without coma; I13.0 Hypertensive heart and chronic kidney disease with heart failure and stage 1 through stage 4 chronic kidney disease, or unspecified chronic kidney disease; E87.20 Acidosis, unspecified; N17.9 Acute kidney failure, unspecified; N39.0 Urinary tract infection, site not specified; E87.1 Hypo-osmolality and hyponatremia; I46.2 Cardiac arrest due to underlying cardiac condition; I49.01 Ventricular fibrillation; R73.9 Hyperglycemia, unspecified; E87.5 Hyperkalemia; Z20.822 Contact with and (suspected) exposure to COVID-19; R57.0 Cardiogenic shock; D69.6 Thrombocytopenia, unspecified; T40.711A Poisoning by cannabis, accidental (unintentional), initial encounter; D75.89 Other specified diseases of blood and blood-forming organs; I48.91 Unspecified atrial fibrillation; I50.9 Heart failure, unspecified; N18.9 Chronic kidney disease, unspecified; Z82.49 Family history of ischemic heart disease and other diseases of the circulatory system; Z83.3 Family history of diabetes mellitus; Z95.810 Presence of automatic (implantable) cardiac defibrillator; Y92.89 Other specified places as the place of occurrence of the external cause
CPT/HCPCS: 36415; 36556; 36600; 70450; 71045; 71260; 72125; 74018; 74177; 80048; 80053; 80074; 80162; 80202; 80307; 80329; 81001; 82550; 82728; 82805; 82962; 83540; 83550; 83605; 83735; 83880; 84100; 84132; 84478; 84484; 85007; 85025; 85027; 85379; 85610; 85730; 86704; 86706; 86708; 86803; 87070; 87081; 87205; 87340; 90935; 92950; 93005; 93306; 94003; 94640; 99152; 99291; C9113; G0378; J0171; J1642; J1956; J2250; J2704; J3480; J7060; J7131; P9047